=== PATIENT | female | born 1995 | race Caucasian/White ===

== ENCOUNTER 2018-12-11 05:33 | Emergency (ER) | payer OTHER ==
[~2018-12-11] VITALS: Ht 162.6 cm; Wt 63.5 kg
[~2018-12-11 05:33] MED LIST: CIPRO500 MG PO; FLAGYL500 M1 PO; NOHOMEMEDICATIONS; PRENATAL PLUS1 EAC4 PO; PRENATAL PO
[2018-12-11] MEDS ORDERED: CLEOCIN HCL150 MG PO (05:49)
[2018-12-11] MEDS ORDERED: HIBICLENS118 ML TOP (05:49)
[2018-12-11 06:06] VITALS: BP 115/60
== END 2018-12-11 06:08 | disposition home or self-care (01) ==
LOC: M.ERS 05:33
DX: L03.116 Cellulitis of left lower limb (principal); L03.211 Cellulitis of face; F17.210 Nicotine dependence, cigarettes, uncomplicated

== ENCOUNTER 2020-06-14 17:40 | Emergency (ER) | payer OTHER ==
[~2020-06-14] VITALS: Ht 162.6 cm; Wt 56.7 kg
[~2020-06-14 17:40] MED LIST changes: +CLEOCIN HCL150 MG PO; +HIBICLENS118 ML TOP
[2020-06-14 17:47] VITALS: BP 113/74
== END 2020-06-14 19:05 | disposition left against medical advice (07) ==
LOC: M.ERS 17:40
DX: Z53.21 Procedure and treatment not carried out due to patient leaving prior to being seen by health care provider (principal)